=== PATIENT | female | born 1955 | race Caucasian/White ===

== ENCOUNTER → 2016-09-04 | Day surgery (SDC) | payer OTHER ==
[~2016-09-04] MED LIST: LIDOCAINE 1%/EPINEPHRINE INJ 20 ML VIAL ONE
--- NOTE | 2016-09-04 12:04 | Operative Report ---
Operative Report DATE OF SURGERY: 09/04/16 PREOPERATIVE DIAGNOSIS: Cluster microcalcifications left breast upper outer aspect. POSTOPERATIVE DIAGNOSIS: Same OPERATION: 1. Incisional mammotomy, multiple core biopsies left breast. 2. Placement of clip marker left breast. 3. Interpretation of intraoperative mammography and specimen mammogram SURGEON: ALDO LAU ANESTHESIA: Local TISSUE REMOVED OR ALTERED: Multiple cores left breast COMPLICATIONS: None ESTIMATED BLOOD LOSS: scant INTRAOPERATIVE FINDINGS: See below PROCEDURE: The patient was taken from the preop radiology suite area to the stereotactic room with a left breast was placed into compression. The target microcalcifications in the upper outer quadrant of the left breast were localized. Surgical plan surgical timeout was conducted. The surface of the left breast was exposed, prepped with Betadine and anesthetized 1% lidocaine without epinephrine. A mammotomy was 11 blade, and the petite mammotome was advanced to the appropriate depth. Pre-and post-fire film showed good alignment between the mammotome and the target microcalcifications. We then proceeded to obtain cores approximately 12 of the left breast target microcalcifications. Specimens were acquired, placed on a core dish and imaged using the portable x-ray device. This revealed one core with microcalcifications we felt represented the target tissue. A clip marker was deployed into the left breast biopsy cavity, and follow-up images showed retention of the clip in the breast. The mammotome and mammotome sleeve were removed from the left breast and the breast was placed into gentle compression. Postop procedure well. Discharge instructions provided.
--- NOTE | 2016-09-04 12:06 | PDOC DISCHARGE SUMMARY ---
Discharge Summary (SDC) - Discharge Final Diagnosis: Microcalcification of left breast Date of Surgery: 09/04/16 Discharge Date: 09/04/16 Condition: Good Treatment or Instructions: The patient to use a compressive bra; take Tylenol Motrin when necessary pain; follow-up with Dr. Storm in approximately 1 week it in [facility]. She is to shower in 48 hours. Discharge Diet: As Tolerated Discharge Activity: Activity As Tolerated Home Care Assistance: None Needed Report the Following to Your Physician Immediately: Shortness of Breath, Increase in Pain, Fever over 101 Degrees
== END ==
LOC: RAD 10:06
PROVIDERS: ATTEND Surgery
PROC: 0HBU3ZX Excision of Left Breast, Percutaneous Approach, Diagnostic (ICD-10-PCS; principal; 2016-09-04)
DX: N60.12 Diffuse cystic mastopathy of left breast (principal); N60.92 Unspecified benign mammary dysplasia of left breast; R92.0 Mammographic microcalcification found on diagnostic imaging of breast; F17.210 Nicotine dependence, cigarettes, uncomplicated; E78.00 Pure hypercholesterolemia, unspecified
CPT/HCPCS: 88305 ×2; 88342; 19081; J3490; 76098

== ENCOUNTER → 2016-12-17 | Outpatient (CLI) | payer OTHER ==
--- NOTE | 2016-12-17 15:27 | WOMENS IMAGING REPORT ---
EXAM DESCRIPTION: LEFT DIAGNOSTIC MAMMO W/CAD COMPLETED DATE/TIME: 12/17/2016 10:01 am REASON FOR STUDY: R92.0, CALCS R92.0 MAMMOGRAPHIC MICROCALCIFICATION FOUND ON DX IMAGING OF COMPARISON: Stereotactic biopsy 09/04/2016 Outside mammograms 07/28/2016 TECHNIQUE: Compression magnification craniocaudal and 90 mediolateral images of the breast recorded with digital acquisition. Additional left whole breast 90 mediolateral view LIMITATIONS: None. FINDINGS: BREAST: Left MASSES: No suspicious masses. CALCIFICATIONS: Post stereotactic biopsy with partial removal of calcifications left breast upper out er quadrant 5 cm from the nipple, with adjacent stereotactic marker. Stereotactic biopsy 09/04/2016 y ielded a benign diagnosis. ARCHITECTURAL DISTORTION: None. DEVELOPING DENSITY: None. ASYMMETRY: None noted. OTHER: No other significant findings. Read with the assistance of CAD. .[facility] - R2 Cenova Version 1.3 .[facility] - R2 Cenova Version 1.3 .[facility] - R2 Cenova Version 2.4 .[facility] - R2 Cenova Version 2.4 .[facility] - R2 Machine Setter Version 9.2 IMPRESSION: Post benign stereotactic biopsy for calcifications, on today's study a clip adjacent to few residual calcifications is seen in the upper outer quadrant left breast BREAST DENSITY: c. The breasts are heterogeneously dense, which may obscure small masses. BIRAD: 2 Benign findings. RECOMMENDATION: RECOMMENDED FOLLOW UP: Continue bilateral screening mammography in July 2016. C onsider screening tomosynthesis given heterogeneously dense tissue SPECIFIC INTERVENTION/IMAGING/CONSULTATION RECOMMENDED:No additional intervention/ imaging/consultati on needed at this time. COMMUNICATION:The negative/benign results were communicated to the patient. COMMENT: The patient has been notified of the results by letter per SA requirements. Additional no tification policies are in place for contacting patient with suspicious or incomplete findings. Quality ID #[id number]: The [employer] recommends an annual screening mammogram for women aged 40 years or over. This facility utilizes a reminder system to ensure that all patients receive reminder letters, and/or direct phone calls for appointments. This includes reminders for routine scr eening mammograms, diagnostic mammograms, or other Breast Imaging Interventions when appropriate. Th is patient will be placed in the appropriate reminder system. The [employer] ([employer]) has developed recommendations for screening MRI of the breast s in certain patient populations, to be used in conjunction with mammography. Breast MRI surveillanc e may be appropriate for women with more than 20% lifetime risk of developing breast cancer as deter mined by genetic testing, significant family history of the disease, or history of mantle radiation f or Hodgkins Disease. ACR Practice Guidelines 2008. TECHNICAL DOCUMENTATION: FINDING NUMBER: (1) ASSESSMENT: (1) JOB ID: [id number] [employer]- All Rights Reserved
== END ==
LOC: WI 08:50
PROVIDERS: ATTEND Surgery
DX: R92.0 Mammographic microcalcification found on diagnostic imaging of breast (principal)
CPT/HCPCS: G0206-52

== ENCOUNTER → 2017-12-10 | Outpatient (CLI) | payer OTHER ==
--- NOTE | 2017-12-11 11:37 | RADIOLOGY REPORT (SQ) ---
EXAM DESCRIPTION: MRI RT UPPER JOINT WITHOUT COMPLETED DATE/TIME: 12/10/2017 11:38 am REASON FOR STUDY: UNSPECIFIED ROTATOR CUFF OR RUPTURE OF RIGHT SHOULDER, NOT SPECIFIED M75.101 UNSP ROTATR-CUFF TEAR/RUPTR OF RIGHT SHOULDER, NOT T COMPARISON: None. TECHNIQUE: Right shoulder images acquired and stored on PACS. Multiplanar imaging to include fat sen sitive sequences such as T1, water sensitive sequences such as FST2/STIR, cartilage sensitive sequenc es such as FSPD/gradient-echo sequences. LIMITATIONS: Motion. FINDINGS: BONE MARROW AND CORTEX: No worrisome bone lesions or marrow replacement. No occult fractur es. JOINT OR BURSAL EFFUSION: No significant joint or bursal fluid. No suggestion of loose bodies. GLENO-HUMERAL ARTICULATION: Intact. Central cartilage loss. ACROMION AND AC JOINT: Type 2. Mild AC joint arthropathy. ROTATOR CUFF AND INTERVAL: Cuff musculature is symmetric. Heterogeneous intermediate signal /diffuse tendinosis. No significant tear. Mild fibrosis in the rotator interval. LABRUM AND BICEPS LABRAL COMPLEX: Limited evaluation of the anchor due to motion. Distal biceps is normal. REMAINDER OF LABRUM AND IGHL : Intact as visualized. PERIARTICULAR AND ADJACENT SOFT TISSUES: No masses or abnormal nodes. OTHER: No other significant finding. IMPRESSION: 1. Diffuse tendinosis. No significant tear identified. 2. AC and glenohumeral joint arthropathy. TECHNICAL DOCUMENTATION: JOB ID: [id number] [employer]- All Rights Reserved Reading location - IP/workstation name: [email or web address]
== END ==
LOC: RAD 11:15
PROVIDERS: ATTEND Physician Assistant
DX: M75.101 Unspecified rotator cuff tear or rupture of right shoulder, not specified as traumatic (principal)

== ENCOUNTER → 2018-07-30 | Outpatient (CLI) | payer MEDICARE, OTHER ==
[2018-07-30 12:49] LABS: ABSOLUTE BASOPHILS # (AUTO) 0.2 10^3/uL (0.0-0.2); ABSOLUTE EOSINOPHILS # (AUTO) 0.2 10^3/uL (0.0-0.6); ABSOLUTE LYMPHOCYTES (AUTO) 3.2 10^3/uL (0.5-4.7); ABSOLUTE MONOCYTES (AUTO) 0.5 10^3/uL (0.1-1.4); ABSOLUTE NEUT (AUTO) 3.9 10^3/uL (1.7-8.2); BASOPHILS % (AUTO) 2.5 % (0-2); HEMATOCRIT 41.4 % (36.0-47.0); HEMOGLOBIN 14.4 g/dL (12.0-15.5); LYMPHOCYTES % (AUTO) 39.8 % (13-45); MEAN CORPUSCULAR HEMOGLOBIN 32.3 pg (27.0-33.4); MEAN CORPUSCULAR HGB CONC 34.9 g/dL (32.0-36.0); MEAN CORPUSCULAR VOLUME 93 fl (80-97); MONOCYTES % (AUTO) 6.6 % (3-13); PLATELET COUNT 319 10^3/uL (150-450); RED BLOOD COUNT 4.47 10^6/uL (3.72-5.28); RED CELL DISTRIBUTION WIDTH 13.1 % (11.5-14.0); SEGMENTED NEUTROPHILS % (AUTO) 48.1 % (42-78); TOTAL CELLS COUNTED % (AUTO) 100 %; WHITE BLOOD COUNT 8.1 10^3/uL (4.0-10.5)
[2018-07-30 13:02] LABS: ALANINE AMINOTRANSFERASE 19 U/L (9-52); ALBUMIN 4.2 g/dL (3.5-5.0); ALKALINE PHOSPHATASE 73 U/L (38-126); ANION GAP 8 (5-19); ASPARTATE AMINO TRANSFERASE 26 U/L (14-36); BILIRUBIN,DIRECT 0.3 mg/dL (0.0-0.4); BILIRUBIN,TOTAL 0.6 mg/dL (0.2-1.3); BLOOD UREA NITROGEN 12 mg/dL (7-20); CALCIUM 9.2 mg/dL (8.4-10.2); CARBON DIOXIDE 29 mmol/L (22-30); CHLORIDE 103 mmol/L (98-107); GLUCOSE 82 mg/dL (75-110); POTASSIUM 4.7 mmol/L (3.6-5.0); SODIUM 140.4 mmol/L (137-145); TOTAL PROTEIN 6.6 g/dL (6.3-8.2)
== END ==
LOC: OD 11:39
PROVIDERS: ATTEND Orthopaedic Surgery
DX: Z11.2 Encounter for screening for other bacterial diseases (principal); I10 Essential (primary) hypertension
CPT/HCPCS: 36415; 80053; 85025; 87070

== ENCOUNTER 2019-12-01 06:35 | Day surgery (SDC) | payer MEDICARE, OTHER ==
[~2019-12-01 06:35] MED LIST changes: +KETOROLAC TROMETHAMINE 0.45% 4 DROP/0.4 ML DROPERETTE OS PRN; -LIDOCAINE 1%/EPINEPHRINE INJ 20 ML VIAL ONE
[2019-12-01] MEDS ORDERED: MIDAZOLAM 2 MG/2 ML INJ ONE (06:49)
[2019-12-01] MEDS ORDERED: ONDANSETRON HCL INJ/PF 4 MG/2 ML SDV ONE (06:49)
[2019-12-01] MEDS ORDERED: FENTANYL CITRATE INJ/PF 100 MCG/2 ML AMPUL ONE (06:49)
[2019-12-01] MEDS: TETRACAINE HCL 0.5% OPH SOLN 4 ML OS PRN ×4 (07:00→07:55)
[2019-12-01] MEDS: TROPICAMIDE 1% OPH SOLN 15 ML OS PRN ×3 (07:00→07:28)
[2019-12-01] MEDS: CYCLOPENTOLATE 0.2%/PHENYLEPHRINE 1% OPH SOLN 2 ML OS PRN ×3 (07:01→07:28)
[2019-12-01] MEDS: BESIFLOXACIN HCL 0.6% OPH SUSP 5 ML BOTTLE OS PRN ×4 (07:01→08:18)
[2019-12-01] MEDS: CHONDR SU A NA/HYALUR INTRAOC KIT (SURGICARE) ONE ×2 (08:08)
[2019-12-01] MEDS: EPINEPHRINE INJ/PF 1 MG/1 ML AMPULE ONE ×2 (08:08)
[2019-12-01] MEDS: LIDOCAINE 1%/PHENYLEPHRINE 1.5% 1 ML VIAL ONE ×2 (08:08)
[2019-12-01] MEDS: DORZOLAMIDE HCL 2%/TIMOLOL MALEAT 0.5% OPH SOLN 10 ML OS PRN ×2 (08:18)
--- NOTE | 2019-12-01 12:10 | Operative Report ---
Operative Report-[facility] Operative Report: DATE OF SURGERY:12/01/19 PREOPERATIVE DIAGNOSIS: Cataracts, left eye POSTOPERATIVE DIAGNOSIS: Cataract, left eye OPERATION: Cataract extraction with insertion of an IOL of the left eye. Intraocular Lens Model: [22.0 sn60wf] Underwent surgery for difficulty seeing words on the television SURGEON: Saturnino Wallace MD ANESTHESIA: Topical PROCEDURE: After obtaining appropriate consent, the patient's left eye was prepped and draped in a sterile fashion as well as the surgeon in the sterile manner and cataract surgery was started. First a paracentesis blade was used to make a side-port incision. Viscoelastic was used to inflate the anterior chamber. Next a 2.4 mm incision was made with a 2.4 mm blade, clear corneal temporarily. A continuous capsulorrhexis was made using a cystotome and Utrata forceps. Following this hydrodissection was carried out to make the lens fully loose and mobile and it was rotated 90 degrees. Following this, a divide and conquer technique was used to phacoemulsify the lens. The remaining cortex was removed with an irrigation/aspiration. Provisc was instilled into the capsular bag to inflate the bag.The intraocular lens was placed. The remaining viscoelastic material was removed with irrigation/aspiration. Following this, the incision was found to be watertight. Besivance and Cosopt was instilled into the eye and a protective shield was placed over the eye. The patient was returned to the postoperative recovery in a stable condition.
== END 2019-12-01 08:52 | disposition home or self-care (01) ==
LOC: SC 06:35
PROVIDERS: ATTEND Internal Medicine
DX: H25.813 Combined forms of age-related cataract, bilateral (principal); D31.31 Benign neoplasm of right choroid; H43.813 Vitreous degeneration, bilateral; F17.210 Nicotine dependence, cigarettes, uncomplicated; Z88.5 Allergy status to narcotic agent; E78.00 Pure hypercholesterolemia, unspecified
CPT/HCPCS: 66984; V2632; J2250; J3490 ×2; A9270; J0171; J3010; J2405; 142

== ENCOUNTER 2019-12-22 08:17 | Day surgery (SDC) | payer MEDICARE, OTHER ==
[~2019-12-22 08:17] MED LIST changes: +KETOROLAC TROMETHAMINE 0.45% 4 DROP/0.4 ML DROPERETTE OD PRN; -KETOROLAC TROMETHAMINE 0.45% 4 DROP/0.4 ML DROPERETTE OS PRN; +MIDAZOLAM 2 MG/2 ML INJ ONE
[2019-12-22] MEDS: TROPICAMIDE 1% OPH SOLN 15 ML OD PRN ×3 (08:47→09:06)
[2019-12-22] MEDS: TETRACAINE HCL 0.5% OPH SOLN 4 ML OD PRN ×3 (08:47→09:17)
[2019-12-22] MEDS: CYCLOPENTOLATE 0.2%/PHENYLEPHRINE 1% OPH SOLN 2 ML OD PRN ×3 (08:48→09:06)
[2019-12-22] MEDS: BESIFLOXACIN HCL 0.6% OPH SUSP 5 ML BOTTLE OD PRN ×4 (08:49→09:40)
[2019-12-22] MEDS: EPINEPHRINE INJ/PF 1 MG/1 ML AMPULE ONE ×2 (09:25→09:29)
[2019-12-22] MEDS: LIDOCAINE 1% INJ-PF (10 MG/ML) 30 ML SDV ONE ×2 (09:25→09:29)
[2019-12-22] MEDS: CHONDR SU A NA/HYALUR INTRAOC KIT (SURGICARE) ONE ×2 (09:26→09:29)
[2019-12-22] MEDS: DORZOLAMIDE HCL 2%/TIMOLOL MALEAT 0.5% OPH SOLN 10 ML OD PRN ×2 (09:40)
--- NOTE | 2019-12-22 13:56 | Operative Report ---
Operative Report-[facility] Operative Report: DATE OF SURGERY: 12/22/2019 PREOPERATIVE DIAGNOSIS: Cataract, right eye POSTOPERATIVE DIAGNOSIS: Cataract, right eye OPERATION: Cataract extraction with insertion of an IOL of the right eye. Intraocular Lens Model: [21.0 sn60wf] Reason for surgery was difficulty with reading small print SURGEON: Saturnino Wallace MD ANESTHESIA: Topical PROCEDURE: After obtaining appropriate consent, the patient's right eye was prepped and draped in a sterile fashion as well as the surgeon in the sterile manner and cataract surgery was started. First a paracentesis blade was used to make a side-port incision. Viscoelastic was used to inflate the anterior chamber. Next a 2.4 mm incision was made with a 2.4 mm blade, clear corneal temporarily. A continuous capsulorrhexis was made using a cystotome and Utrata forceps. Following this hydrodissection was carried out to make the jazmin fully loose and mobile and it was rotated. Following this, a divide and conquer technique was used to phacoemulsify the jazmin. The remaining cortex was removed with an irrigation/aspiration. Provisc was instilled into the capsular bag to inflate the bag. The intraocular lens was placed. The remaining viscoelastic material was removed with irrigation/aspiration. Following this, the incision was found to be watertight. Besivance and Cosopt was instilled into the eye and a protective shield was placed over the eye. The patient was reurned to the postoperative recovery in a stable condition.
== END 2019-12-22 10:20 | disposition home or self-care (01) ==
LOC: SC 08:17
PROVIDERS: ATTEND Internal Medicine
DX: H25.811 Combined forms of age-related cataract, right eye (principal); Z96.1 Presence of intraocular lens; E78.00 Pure hypercholesterolemia, unspecified; F17.210 Nicotine dependence, cigarettes, uncomplicated; Z88.5 Allergy status to narcotic agent
CPT/HCPCS: 66984; V2632; J2250; J3490 ×3; A9270; J0171; 142